=== PATIENT | female | born 1985 | race Caucasian/White ===

== ENCOUNTER 2017-07-15 18:33 | Emergency (ER) | payer MEDICAID ==
[2017-07-15 18:56] VITALS: BMI 42.7
--- NOTE | 2017-07-15 20:07 | DR.GENAD ---
HPI - PCP Primary Care Physician: NFD - Complaint/Symptoms Chief Complaint Doctors Comments: Patient presents with bilateral knee pain secondary to arthritis. She states that she has a flair up and the pain is worse. Chief Complaint:: PT C/O BILAT KNEE PAIN. PT STATES IT STARTED A FEW DAYS AGO - Source History Provided: Patient - Mode of Arrival Mode of Arrival: EMS - Timing Onset of Chief Complaint: 07/13/17 PMH - PMH Past Medical History: Yes Past Medical History: Arthritis Past Surgical History: Yes Surgical History: Cholecystectomy - Family History History of Family Medical Conditions: No - Social History Does patient currently use any type of tobacco product: Yes Have you used tobacco products in the last 12 months: Yes Type of Tobacco Use: Cigarettes Does any household member use tobacco: Yes Alcohol Use: None Do you use any recreational Drugs:: No Lives With: Family Lives Where: Home - infectious screening In the last 2 months have you had wt loss of >10#?: NO Have you had fever, night sweats or hemotysis?: No Have you traveled outside the country in the last 6 months?: No Isolation: Standard ROS - Review of Systems Eyes: No Symptoms Reported ENTM: No Symptoms Reported Respiratoy: No Symptoms Reported Cardiovascular: No Symptoms Reported Gastrointestinal/Abdominal: No Symptoms Reported Genitourinary: No Symptoms Reported Neurological: No Symptoms Reported Musculoskeletal: Knee (bilateral knee pain) Integumentary: No Symptoms Reported Hematologic/Lymphatic: No Symptoms Reported Endocrine: No Symptoms Reported Psychiatric: No Symptoms Reported All Other Systems: Reviewed and Negative PE - Vital Signs Vitals: Temperature 97.6 F Pulse Rate 104 Respiratory Rate 20 Blood Pressure 135/96 O2 Sat by Pulse Oximetry 96 - General Limitations: Physical Limitation (arthritis) General Appearance: Alert, In No Apparent Distress - Head Head Exam: Normal Inspection, Atraumatic - Eyes Eye exam: Normal Appearance - ENT ENT Exam: Normal Exam External Ear Exam: Normal External Inspection TM/Canal Exam: Bilateral Normal Nose Exam: Normal Nose Exam Mouth Exam: Normal Inspection Throat Exam: Normal Inspection - Neck Neck Exam: Normal Inspection, Full ROM - Chest Chest Inspection: Normal Inspection, Symmetric Chest Wall Rise - Respiratory Respiratory Exam: Normal Lung Sounds Bilat Respiratory Exam: Bilateral Clear to Auscultation - Cardiovascular Cardiovascular Exam: Regular Rate, Normal Rhythm - Abdominal Exam Abdominal Exam: Normal Inspection, Normal Bowel Sounds Abdominal Tenderness: negative: RUQ, RLQ, LUQ, LLQ, Epigastrium, Suprapubic, Diffuse, Mild, Moderate, Severe, Other - Extremities Extremities Exam: Normal Inspection, Full ROM, Tenderness (left knee swollen, warm to touch right wnl) - Back Back Exam: Normal Inspection, Full ROM - Neurologic Neurological Exam: Alert, Oriented X3, CN II-XII Intact - Psychiatric Psychiatric Exam: Normal Affect - Skin Skin Exam: Warm, Dry, Intact Course - Reevaluation 1st: Improved - Diagnosis Discharge Problem: Bilateral knee pain Qualifiers: Chronicity: chronic Qualified Code(s): M25.561 - Pain in right knee; M25.562 - Pain in left knee; M25.562 - Pain in left knee; G89.29 - Other chronic pain; G89.29 - Other chronic pain - Discharge Plan Condition: Stable - Follow ups/Referrals Follow ups/Referrals: DILLAN REDMAN [Primary Care Provider] - 3 days - Instructions
[2017-07-15] MEDS ORDERED: DECADRON INJ IM ONE (20:08)
[2017-07-15] MEDS ORDERED: DECADRON INJ ONE (20:09)
[2017-07-15 20:40] VITALS: BP 140/97
== END 2017-07-15 20:40 | disposition home or self-care (01) ==
LOC: ER 18:49
DX: M25.562 Pain in left knee (principal); G89.29 Other chronic pain
CPT/HCPCS: 96372; 99282; 99283; J1100

== ENCOUNTER 2017-09-01 19:14 | Emergency (ER) | payer MEDICAID ==
[2017-09-01 19:20] VITALS: BP 128/79; BMI 42.5
== END 2017-09-01 19:45 | disposition left against medical advice (07) ==
LOC: ER 19:28
DX: H92.02 Otalgia, left ear (principal)
CPT/HCPCS: 99281